=== PATIENT | male | born 1965 | race Caucasian/White ===

== ENCOUNTER 2017-09-24 18:08 | Emergency (ER) | payer BC, OTHER ==
--- NOTE | 2017-09-24 20:09 | RAD REPORT ---
EXAM DESCRIPTION: RAD - Hand Right 3 View - 09/24/2017 7:53 pm CLINICAL HISTORY: Fish hook injury COMPARISON: None. FINDINGS: No fracture is identified. There is no dislocation or periosteal reaction noted. Treble h ook is present in the soft tissues distal third digit. No bone involvement.
[2017-09-24] MEDS ORDERED: LIDOCAINE 2% MPF 5 ML VIAL ONE (20:51)
--- NOTE | 2017-09-24 21:04 | EDPHYS ---
Physician Documentation [facility] Name: Santiago Singh Age: 51 yrs Sex: Male : 1965 Arrival Date: 09/24/2017 Time: 18:13 Bed 30 Private MD: Dannie Lacy E ED Physician Faraz Modi HPI: 09/24 20:53 This 51 yrs old Male presents to ER via Ambulatory with complaints of FISH geeta HOOK IN FINGER. 20:53 The patient or guardian reports a puncture wound, hook. The complaints affect the right geeta hand diffusely. Context: The problem was sustained outdoors. Onset: The symptoms/episode began/occurred just prior to arrival. Modifying factors: The symptoms are alleviated by. Associated signs and symptoms: The patient has no apparent associated signs or symptoms. Severity of symptoms: At their worst the symptoms were mild, in the emergency department the symptoms are unchanged. The patient has not experienced similar symptoms in the past. Historical: - Allergies: 18:25 No Known Allergies; aj - PMHx: 18:25 Back pain; aj - PSHx: 18:25 Nerve stimulator; aj - Immunization history:: Adult Immunizations up to date. - Social history:: Smoking status: Patient/guardian denies using tobacco. - Family history:: not pertinent. ROS: 20:53 Constitutional: Negative for fever, chills, and weight loss, Eyes: Negative for injury, geeta pain, redness, and discharge, ENT: Negative for injury, pain, and discharge, Neck: Negative for injury, pain, and swelling, Cardiovascular: Negative for chest pain, palpitations, and edema, Respiratory: Negative for shortness of breath, cough, wheezing, and pleuritic chest pain, Abdomen/GI: Negative for abdominal pain, nausea, vomiting, diarrhea, and constipation, Back: Negative for injury and pain, : Negative for injury, bleeding, discharge, and swelling, Skin: Negative for injury, rash, and discoloration, Neuro: Negative for headache, weakness, numbness, tingling, and seizure, Psych: Negative for depression, anxiety, suicide ideation, homicidal ideation, and hallucinations, Allergy/Immunology: Negative for hives, rash, and allergies, Endocrine: Negative for neck swelling, polydipsia, polyuria, polyphagia, and marked weight changes, Hematologic/Lymphatic: Negative for swollen nodes, abnormal bleeding, and unusual bruising. 20:53 : Positive for 20:53 MS/extremity: Positive for pain, puncture. Exam: 20:53 Constitutional: This is a well developed, well nourished patient who is awake, alert, geeta and in no acute distress. Head/Face: Normocephalic, atraumatic. Eyes: Pupils equal round and reactive to light, extra-ocular motions intact. Lids and lashes normal. Conjunctiva and sclera are non-icteric and not injected. Cornea within normal limits. Periorbital areas with no swelling, redness, or edema. ENT: Nares patent. No nasal discharge, no septal abnormalities noted. Tympanic membranes are normal and external auditory canals are clear. Oropharynx with no redness, swelling, or masses, exudates, or evidence of obstruction, uvula midline. Mucous membranes moist. Neck: Trachea midline, no thyromegaly or masses palpated, and no cervical lymphadenopathy. Supple, full range of motion without nuchal rigidity, or vertebral point tenderness. No Meningismus. Chest/axilla: Normal chest wall appearance and motion. Nontender with no deformity. No lesions are appreciated. Cardiovascular: Regular rate and rhythm with a normal S1 and S2. No gallops, murmurs, or rubs. Normal PMI, no JVD. No pulse deficits. Respiratory: Lungs have equal breath sounds bilaterally, clear to auscultation and percussion. No rales, rhonchi or wheezes noted. No increased work of breathing, no retractions or nasal flaring. Abdomen/GI: Soft, non-tender, with normal bowel sounds. No distension or tympany. No guarding or rebound. No evidence of tenderness throughout. Back: No spinal tenderness. No costovertebral tenderness. Full range of motion. Male : Normal genitalia with no discharge or lesions. Skin: Warm, dry with normal turgor. Normal color with no rashes, no lesions, and no evidence of cellulitis. Neuro: Awake and alert, GCS 15, oriented to person, place, time, and situation. Cranial nerves II-XII grossly intact. Motor strength 5/5 in all extremities. Sensory grossly intact. Cerebellar exam normal. Normal gait. Psych: Awake, alert, with orientation to person, place and time. Behavior, mood, and affect are within normal limits. 20:53 Musculoskeletal/extremity: Extremities: noted in the palmar aspect of distal phalanx of right middle finger: pain. Vital Signs: 18:25 BP 142 / 112; Pulse 110; Resp 20; Temp 98.5; Pulse Ox 98% on R/A; Weight 90.72 kg; Height 6 ft. 0 in. (182.88 cm); 18:25 Body Mass Index 27.12 (90.72 kg, 182.88 cm) MDM: 20:21 Patient medically screened. [facility] 21:02 Data reviewed: vital signs, nurses notes, radiologic studies, plain films. [facility] 09/24 18:27 Order name: XRAY Hand RIGHT 3 View 09/24 20:52 Order name: Suture Tray at Bedside; Complete Time: 21:37 [facility] 09/24 20:52 Order name: Wound dressing [facility] Administered Medications: 21:00 Drug: Lidocaine (1 %) 5 mg Route: Infiltration; mb3 21:38 Not Given (Patient Refused): Doxycycline 200 mg PO once mb3 Disposition: 09/24/17 21:04 Discharged to Home. Impression: Puncture wound with foreign body of right middle finger without damage to nail. - Condition is Stable. - Discharge Instructions: Fish Hook Removal. - Prescriptions for Tylenol- Codeine #3 300-30 mg Oral Tablet - take 2 tablets by ORAL route every 6 hours As needed; 24 tablet. Doxycycline Hyclate 100 mg Oral Tablet - take 1 tablet by ORAL route every 12 hours; 20 tablet. - Medication Reconciliation Form, Thank You Letter, Antibiotic Education, Prescription Opioid Use form. - Follow up: Dannie Lacy MD; When: 2 - 3 days; Reason: Recheck today's complaints, Continuance of care, Re-evaluation by your physician. - Problem is new. - Symptoms have improved. Signatures: Dispatcher [employer] EDZainab Mortensen RN RN aj Anderson, Corey, MD MD cha Barnett, Mark, RN RN mb3 Corrections: (The following items were deleted from the chart) 21:40 21:04 09/24/2017 21:04 Discharged to Home. Impression: Puncture wound with foreign body mb3 of right middle finger without damage to nail. Condition is Stable. Forms are Medication Reconciliation Form, Thank You Letter, Antibiotic Education, Prescription Opioid Use. Follow up: Dannie Lacy; When: 2 - 3 days; Reason: Recheck today's complaints, Continuance of care, Re-evaluation by your physician. Problem is new. Symptoms have improved. geeta
--- NOTE | 2017-09-24 21:04 | ER ---
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 aj Transition of care: patient was not received from another setting of care. Onset of symptoms was September 24, 2017. Care prior to arrival: None. 18:24 Method Of Arrival: Ambulatory aj 18:24 Acuity: HANDY 4 aj 21:39 Initial Sepsis Screen: Does the patient meet any 2 criteria? No. Patient's initial mb3 sepsis screen is negative. Does the patient have a suspected source of infection? No. Patient's initial sepsis screen is negative. Triage Assessment: 18:25 General: Appears in no apparent distress. comfortable, Behavior is calm, cooperative, aj appropriate for age. Pain: Complains of pain in palmar aspect of distal phalanx of right middle finger. Neuro: Level of Consciousness is awake, alert, obeys commands, Oriented to person, place, time, situation, Appropriate for age. Respiratory: Airway is patent Trachea midline Respiratory effort is even, unlabored, Respiratory pattern is regular, symmetrical. Derm: Skin is intact, is healthy with good turgor, Skin is pink, warm \T\ dry. normal. Injury Description: Foreign body is located palmar aspect of distal phalanx of right middle finger. Historical: - Allergies: 18:25 No Known Allergies; aj - PMHx: 18:25 Back pain; aj - PSHx: 18:25 Nerve stimulator; aj - Immunization history:: Adult Immunizations up to date. - Social history:: Smoking status: Patient/guardian denies using tobacco. - Family history:: not pertinent. Screenin:39 Abuse screen: Denies threats or abuse. Nutritional screening: No deficits noted. mb3 Tuberculosis screening: No symptoms or risk factors identified. Fall Risk None identified. Vital Signs: 18:25 BP 142 / 112; Pulse 110; Resp 20; Temp 98.5; Pulse Ox 98% on R/A; Weight 90.72 kg; aj Height 6 ft. 0 in. (182.88 cm); 18:25 Body Mass Index 27.12 (90.72 kg, 182.88 cm) ED Course: 18:13 Patient arrived in ED. rg4 18:14 Dnanie Lacy MD is Private Physician. rg4 18:25 Triage completed. 18:25 Arm band placed on right wrist. Patient placed in waiting room, Patient notified of wait time. 19:48 X-ray completed. Portable x-ray completed in exam room. Patient tolerated procedure kc2 well. 19:49 XRAY Hand RIGHT 3 View In Process Unspecified. EDMS 20:21 Faraz Modi MD is Attending Physician. [facility] 21:03 Dannie Lacy MD is Referral Physician. [facility] 21:37 lAex Yip, RN is Primary Nurse. mb3 21:39 Assist provider with laceration repair Set up tray. Patient did not have IV access mb3 during this emergency room visit. 21:40 Patient has correct armband on for positive identification. mb3 Administered Medications: 21:00 Drug: Lidocaine (1 %) 5 mg Route: Infiltration; mb3 21:38 Not Given (Patient Refused): Doxycycline 200 mg PO once mb3 Outcome: 21:04 Discharge ordered by . [facility] 21:40 Discharged to home ambulatory. mb3 21:40 Condition: stable 21:40 Discharge instructions given to patient, Instructed on discharge instructions, follow up and referral plans. medication usage, Demonstrated understanding of instructions, follow-up care, medications, Prescriptions given X 2. 21:40 Patient left the ED. mb3 Signatures: Dispatcher [employer] EDRI Zainab Bloom, RN RN Faraz Rodriguez MD MD cha Carr, Kelsie kc2 Gloria Her rg4 Alex Yip, RN RN mb3
== END 2017-09-24 21:40 | disposition home or self-care (01) ==
LOC: ER 18:08
DX: S61.242A Puncture wound with foreign body of right middle finger without damage to nail, initial encounter (principal); X58.XXXA Exposure to other specified factors, initial encounter; Y93.9 Activity, unspecified; Y92.9 Unspecified place or not applicable
CPT/HCPCS: 99284

== ENCOUNTER 2019-08-07 17:14 | Emergency (ER) | payer OTHER ==
--- OUTSIDE RECORDS SUMMARY | 2019-08-07 17:16 | XMS REPORT ---
:1965 [facility] [address] [place] [address] Care Team Providers Name Role Phone Unavailable Unavailable Unavailable Problems This patient has no known problems. Allergies, Adverse Reactions, Alerts This patient has no known allergies or adverse reactions. Medications This patient has no known medications.
[2019-08-07] MEDS ORDERED: ONDANSETRON 4 MG/2 ML VIAL ONE (17:28)
[2019-08-07] MEDS ORDERED: MORPHINE 4 MG/ML SYR ONE (17:28)
[2019-08-07] MEDS ORDERED: HYDROMORPHONE HCL 1 MG/ML INJ ONE ×5 (17:34→20:13)
[2019-08-07] MEDS ORDERED: NA CHLORIDE 0.9% 1,000 ML ONE (17:41)
[2019-08-07] MEDS ORDERED: DIAZEPAM 10 MG/2 ML INJ SYRINGE ONE (18:10)
[2019-08-07 18:12] LABS: Absolute Lymphocytes (CBC) 1.7 K/uL (0.7-4.9); Basophils % 0.5 % (0-1.3); Hematocrit 38.8 % (39.6-49.0); Lymphocytes % 16.1 % (15.3-44.8); MPV 8.2 fL (7.6-11.3); RBC Red Blood Cell Count 4.49 M/uL (4.33-5.43)
[2019-08-07 18:26] LABS: Potassium 3.6 mmol/L (3.5-5.1)
--- NOTE | 2019-08-07 18:40 | ER ---
Nurse's Notes [facility] Name: Santiago Singh Age: 53 yrs Sex: Male : 1965 Arrival Date: 08/07/2019 Time: 17:15 Bed 8 Private MD: Diagnosis: Displaced comminuted fracture of shaft of right femur-distal, above prosthesis Presentation: 08/06 17:16 Chief complaint: EMS states: FALL FROM STANDING ONTO R KNEE. Coronavirus screen: bp Patient denies fever greater than 100.4F, cough, shortness of breath, or difficulty breathing. Proceed with normal triage process. Ebola Screen: No symptoms or risks identified at this time. Initial Sepsis Screen: Does the patient meet any 2 criteria? HR > 90 bpm. No. Patient's initial sepsis screen is negative. Does the patient have a suspected source of infection? No. Patient's initial sepsis screen is negative. Risk Assessment: Do you want to hurt yourself or someone else? Patient reports no desire to harm self or others. Care prior to arrival: Medication(s) given: FENTANYL 100 MCG, KETAMINE 60 MG IV initiated. 18 GA, in the right hand. 17:16 Method Of Arrival: EMS: [facility] bp 17:16 Acuity: HANDY 3 bp 19:08 Onset of symptoms was August 07, 2019. jd3 Triage Assessment: 17:18 General: Appears in no apparent distress. comfortable, Behavior is cooperative, bp appropriate for age, agitated, anxious. Pain: Complains of pain in right knee. EENT: No deficits noted. Neuro: No deficits noted. Cardiovascular: No deficits noted. Respiratory: No deficits noted. GI: No signs and/or symptoms were reported involving the gastrointestinal system. : No signs and/or symptoms were reported regarding the genitourinary system. Derm: No deficits noted. Musculoskeletal: Swelling present in right knee. Historical: - Allergies: 17:18 No Known Allergies; bp - Home Meds: 17:18 [place] 10-325 mg Oral tab 1 tab every 6 hours [Active]; bp - PMHx: 17:18 Chronic pain; bp - Immunization history:: Adult Immunizations up to date. - Social history:: Smoking status: unknown. Screenin:19 Abuse screen: Denies threats or abuse. Denies injuries from another. Nutritional bp screening: No deficits noted. Tuberculosis screening: No symptoms or risk factors identified. Fall Risk None identified. Assessment: 17:19 General: SEE TRIAGE NOTE. bp 17:30 Reassessment: PT AGITATED AND LOUD, MD INFORMED. MEDICATION ORDERED AND GIVEN. bp 17:48 Reassessment: XRAY AT B/S, PT REFUSING ALL XRAY EXCEPT KNEE. bp 18:35 Reassessment: PT REFUSING ADDITIONAL XRAYS. CT KNEE PENDING. bp 19:05 Reassessment: pt to CT with certified technician. jd3 19:30 Reassessment: report given to Rianna Escamilla RN at [facility]. jd3 19:40 General: Appears in no apparent distress. uncomfortable, Behavior is calm, cooperative, jd3 appropriate for age. Pain: Complains of pain in right knee Quality of pain is described as sharp, shooting, tender. Neuro: Level of Consciousness is awake, alert, obeys commands, Oriented to person, place, time, situation. Cardiovascular: Denies chest pain, Capillary refill < 3 seconds Patient's skin is warm and dry. Respiratory: Airway is patent Respiratory effort is even, unlabored, Respiratory pattern is regular, symmetrical, Denies cough, shortness of breath. GI: No signs and/or symptoms were reported involving the gastrointestinal system. Patient currently denies diarrhea, nausea, vomiting. : No signs and/or symptoms were reported regarding the genitourinary system. EENT: No signs and/or symptoms were reported regarding the EENT system. Derm: Skin is intact, Skin is dry, Skin is normal, Skin temperature is warm. Musculoskeletal: Circulation, motion, and sensation intact. Range of motion: limited in right knee. Injury Description: Abrasion sustained to right knee. 20:17 Reassessment: Patient appears in no apparent distress at this time. No changes from jd3 previously documented assessment. Patient and/or family updated on plan of care and expected duration. Pain level reassessed. Patient is alert, oriented x 3, equal unlabored respirations, skin warm/dry/pink. report given to EMS. Vital Signs: 17:16 BP 144 / 67; Pulse 102; Resp 17; Temp 98; Pulse Ox 98% ; Weight 81.65 kg; bp 17:49 BP 154 / 94; Pulse 74; Resp 17; Pulse Ox 98% ; bp 18:34 BP 174 / 95; Pulse 80; Resp 17; Pulse Ox 97% ; bp 19:48 BP 188 / 99; Pulse 81; Resp 17 S; Pulse Ox 100% on R/A; jd3 ED Course: 17:15 Patient arrived in ED. bp 17:17 Triage completed. bp 17:17 Faraz Modi MD is Attending Physician. geeta 17:18 Faraz Gillis PA is PHCP. cp 17:18 Arm band placed on. bp 17:19 Patient has correct armband on for positive identification. Bed in low position. Call bp light in reach. Side rails up X2. 17:19 Maintain EMS IV. Dressing intact. Good blood return noted. Site clean \T\ dry. Gauge \T\ bp site: 18 G R HAND. 17:42 Arjun Santoro, RN is Primary Nurse. bp 18:24 Knee Right 3 View In Process Unspecified. EDMS 18:55 Inserted saline lock: 20 gauge in right wrist, using aseptic technique. placed by Arjun forrest RN. 19:19 Knee Right Wo Cont In Process Unspecified. EDMS 19:29 No provider procedures requiring assistance completed. Patient transferred, IV remains jd3 in place. 19:40 Knee immobilizer applied on right knee. jd3 Administered Medications: 17:26 Drug: morphine 4 mg Route: IVP; Site: right hand; bp 17:43 Follow up: Response: Pain is unchanged, physician notified bp 17:27 Drug: Zofran (Ondansetron) 4 mg Route: IVP; Site: right hand; bp 17:45 Follow up: Response: No adverse reaction bp 17:27 Drug: NS 0.9% 1000 ml Route: IV; Rate: 1 bolus; Site: right hand; bp 19:00 Follow up: Response: No adverse reaction; IV Status: Completed infusion; IV Intake: jd3 1000ml 17:29 CANCELLED (Physician Discretion): morphine 4 mg IVP once; RASS on ADMIN: Combtv4, Very cp Agttd3, Agttd2, Rstlss1, AlertClm0, Drwsy-1, Lt Sdtn-2, Mod Sdtn-3, Dp Sdtn-4, UnArsble-5 17:32 Drug: Dilaudid 1 mg Route: IVP; Site: right hand; bp 17:44 Follow up: Response: Pain is decreased bp 17:44 Follow up: Response: Pain is unchanged, physician notified bp 17:33 CANCELLED (Duplicate Order): Dilaudid 1 mg IVP once; RASS on ADMIN: Combtv4, Very bp Agttd3, Agttd2, Rstlss1, AlertClm0, Drwsy-1, Lt Sdtn-2, Mod Sdtn-3, Dp Sdtn-4, UnArsble-5 17:43 Drug: Dilaudid 1 mg Route: IVP; Site: right hand; bp 17:44 Follow up: Response: Pain is decreased bp 18:08 Drug: Valium 5 mg Route: IVP; Site: right hand; bp 18:34 Follow up: Response: No adverse reaction; Pain is decreased bp 18:08 Drug: Dilaudid 1 mg Route: IVP; Site: right hand; bp 18:34 Follow up: Response: Pain is decreased bp 19:01 Drug: Dilaudid 1 mg Route: IVP; Site: right hand; bp 19:39 Follow up: Response: No adverse reaction; RASS: Restless (+1) jd3 20:15 Drug: Dilaudid 1 mg Route: IVP; Site: right wrist; jd3 20:19 Follow up: Response: No adverse reaction; RASS: Alert and Calm (0); RASS: Alert and jd3 Calm (0), medicated prior to transfer. Intake: 19:00 IV: 1000ml; Total: 1000ml. jd3 Outcome: 18:39 ER care complete, transfer ordered by . cp 20:17 Transferred by ground EMS to other acute care facility: [facility] Transfer jd3 form completed. X-rays sent w/ patient. 20:17 Condition: stable 20:17 Instructed on the need for transfer, Demonstrated understanding of instructions. 20:20 Patient left the ED. jd3 Signatures: Dispatcher [employer] EDMS Faraz Modi MD MD cha Page, Corey, PA PA cp Davies, Jonathon, RN RN jd3 Peltier, Brian, RN RN bp Corrections: (The following items were deleted from the chart) 17:50 17:48 Reassessment: XRAY AT B/S. bp bp 18:36 18:35 Reassessment: PT REFUSING ADDITIONAL XRAYS. SPLINT AND TRANSFER PENDING bp bp 19:48 19:40 General: Appears in no apparent distress. uncomfortable, Behavior is calm, jd3 cooperative, appropriate for age, jd3
--- NOTE | 2019-08-07 18:41 | EDPHYS ---
Physician Documentation [facility] Name: Santiago Singh Age: 53 yrs Sex: Male : 1965 Arrival Date: 08/07/2019 Time: 17:15 Bed 8 Private MD: ED Physician Faraz Modi HPI: 08/06 17:45 This 53 yrs old Male presents to ER via EMS with complaints of Knee Pain. cp 17:45 The patient presents with decreased range of motion, an injury, pain, that is acute, cp swelling, tenderness. The complaints affect the right knee. Context: resulted from the patient falling, while walking, the patient is not able to bear weight, the patient is not able to ambulate, Patient reports having knee replacement surgery in March 2019. Onset: The symptoms/episode began/occurred just prior to arrival. Associated signs and symptoms: Pertinent negatives numbness. Treatment prior to arrival includes: splinting the affected extremity, given 100 fentanyl and 60 mg ketamine by EMS. Severity of symptoms: in the emergency department the symptoms are unchanged, despite EMS interventions. Historical: - Allergies: 17:18 No Known Allergies; bp - Home Meds: 17:18 Peck 10-325 mg Oral tab 1 tab every 6 hours [Active]; bp - PMHx: 17:18 Chronic pain; bp - Immunization history:: Adult Immunizations up to date. - Social history:: Smoking status: unknown. ROS: 17:48 Eyes: Negative for injury, pain, redness, and discharge. cp 17:48 Constitutional: Negative for body aches, chills, fever, poor PO intake. 17:48 Neck: Negative for pain with movement, pain at rest, stiffness, tenderness, bony tenderness. 17:48 Cardiovascular: Negative for chest pain, edema, palpitations. 17:48 Respiratory: Negative for cough, shortness of breath, wheezing. 17:48 Abdomen/GI: Negative for abdominal pain, vomiting, diarrhea, constipation, black/tarry stool, rectal bleeding. 17:48 Back: Negative for pain at rest, pain with movement. 17:48 MS/extremity: Positive for injury or acute deformity, decreased range of motion, pain, of the right leg, Negative for paresthesias. 17:48 Skin: Positive for abrasion(s), of the right leg. 17:48 Neuro: Negative for altered mental status, dizziness, headache, loss of consciousness, syncope, weakness. 17:48 All other systems are negative. Exam: 17:50 Head/Face: Normocephalic, atraumatic. cp 17:50 Constitutional: The patient appears alert, awake, non-toxic, well developed, well nourished, in obvious distress, mildly distressed, in obvious pain, uncomfortable. 17:50 Eyes: Periorbital structures: appear normal, Pupils: equal, round, and reactive to light and accomodation, Extraocular movements: intact throughout, Conjunctiva: normal, no exudate, no injection, Lids and lashes: appear normal, bilaterally. 17:50 ENT: External ear(s): are unremarkable, Nose: is normal, Mouth: Lips: moist, Oral mucosa: pink and intact, moist, Posterior pharynx: is normal, airway is patent, no erythema, no exudate. 17:50 Neck: C-spine: vertebral tenderness, is not appreciated, crepitus, is not appreciated, ROM/movement: pain, is not appreciated, limited range of motion, is not appreciated. 17:50 Chest/axilla: Inspection: normal, Palpation: is normal, no crepitus, no tenderness. 17:50 Cardiovascular: Rate: normal, Rhythm: regular, Edema: is not appreciated, JVD: is not appreciated. 17:50 Respiratory: the patient does not display signs of respiratory distress, Respirations: normal, no use of accessory muscles, no retractions, labored breathing, is not present, Breath sounds: are clear throughout, no decreased breath sounds, no stridor, no wheezing. 17:50 Abdomen/GI: Inspection: abdomen appears normal, Bowel sounds: active, all quadrants, Palpation: abdomen is soft and non-tender, in all quadrants, voluntary guarding, is not appreciated, involuntary guarding, is not appreciated. 17:50 Back: pain, is absent, ROM is normal. 17:50 Musculoskeletal/extremity: Extremities: grossly normal except: noted in the right leg: decreased ROM, pain, tenderness, Perfusion: the extremity is normally perfused throughout, Severe pain noted. Joints: All joints are normal except the right knee displays limited range of motion, pain at rest, painful range of motion, swelling, tenderness. 17:50 Skin: injury, abrasion(s), small abrasion noted, of the right leg. 17:50 Neuro: Orientation: to person, place \T\ time. Mentation: is normal, Motor: moves all fours, strength is normal, Sensation: is normal. Vital Signs: 17:16 BP 144 / 67; Pulse 102; Resp 17; Temp 98; Pulse Ox 98% ; Weight 81.65 kg; bp 17:49 BP 154 / 94; Pulse 74; Resp 17; Pulse Ox 98% ; bp 18:34 BP 174 / 95; Pulse 80; Resp 17; Pulse Ox 97% ; bp 19:48 BP 188 / 99; Pulse 81; Resp 17 S; Pulse Ox 100% on R/A; jd3 MDM: 17:17 Patient medically screened. geeta 17:30 Differential diagnosis: dislocation, open fracture, closed fracture, contusion, cp abrasion. 18:35 Data reviewed: vital signs, nurses notes, lab test result(s), radiologic studies, plain cp films. 18:35 Test interpretation: by ED physician or midlevel provider: xrays of right knee show cp distal femur fracture above prosthesis. Response to treatment: the patient's symptoms have mildly improved after treatment, and as a result, I will transfer patient. 08/06 17:20 Order name: Basic Metabolic Panel; Complete Time: 18:35 08/06 18:35 Interpretation: Normal except: CL 110; GLUC 127; GFR 80. 08/06 17:20 Order name: CBC with Diff; Complete Time: 18:35 08/06 18:35 Interpretation: Normal except: HGB 13.2; HCT 38.8; AKASH% 75.4. 08/06 17:20 Order name: Creatinine for Radiology; Complete Time: 18:35 08/06 17:20 Order name: Type And Screen; Complete Time: 19:46 08/06 19:13 Order name: Antibody Screen; Complete Time: 19:46 EDMS 08/06 18:10 Order name: Knee Right 3 View; Complete Time: 19:46 EDMS 08/06 19:46 Interpretation: Report Reviewed. 08/06 18:42 Order name: Knee Right Wo Cont; Complete Time: 19:46 EDMS 08/06 19:47 Interpretation: Report Reviewed. 08/06 17:20 Order name: Labs collected and sent; Complete Time: 19:49 08/06 18:35 Order name: Knee Immobilizer; Complete Time: 19:39 cp Administered Medications: 17:26 Drug: morphine 4 mg Route: IVP; Site: right hand; bp 17:43 Follow up: Response: Pain is unchanged, physician notified bp 17:27 Drug: Zofran (Ondansetron) 4 mg Route: IVP; Site: right hand; bp 17:45 Follow up: Response: No adverse reaction bp 17:27 Drug: NS 0.9% 1000 ml Route: IV; Rate: 1 bolus; Site: right hand; bp 19:00 Follow up: Response: No adverse reaction; IV Status: Completed infusion; IV Intake: jd3 1000ml 17:29 CANCELLED (Physician Discretion): morphine 4 mg IVP once; RASS on ADMIN: Combtv4, Very cp Agttd3, Agttd2, Rstlss1, AlertClm0, Drwsy-1, Lt Sdtn-2, Mod Sdtn-3, Dp Sdtn-4, UnArsble-5 17:32 Drug: Dilaudid 1 mg Route: IVP; Site: right hand; bp 17:44 Follow up: Response: Pain is decreased bp 17:44 Follow up: Response: Pain is unchanged, physician notified bp 17:33 CANCELLED (Duplicate Order): Dilaudid 1 mg IVP once; RASS on ADMIN: Combtv4, Very bp Agttd3, Agttd2, Rstlss1, AlertClm0, Drwsy-1, Lt Sdtn-2, Mod Sdtn-3, Dp Sdtn-4, UnArsble-5 17:43 Drug: Dilaudid 1 mg Route: IVP; Site: right hand; bp 17:44 Follow up: Response: Pain is decreased bp 18:08 Drug: Valium 5 mg Route: IVP; Site: right hand; bp 18:34 Follow up: Response: No adverse reaction; Pain is decreased bp 18:08 Drug: Dilaudid 1 mg Route: IVP; Site: right hand; bp 18:34 Follow up: Response: Pain is decreased bp 19:01 Drug: Dilaudid 1 mg Route: IVP; Site: right hand; bp 19:39 Follow up: Response: No adverse reaction; RASS: Restless (+1) jd3 20:15 Drug: Dilaudid 1 mg Route: IVP; Site: right wrist; jd3 20:19 Follow up: Response: No adverse reaction; RASS: Alert and Calm (0); RASS: Alert and jd3 Calm (0), medicated prior to transfer. Disposition: 08/07 07:34 Co-signature as Attending Physician, Faraz Modi MD I agree with the assessment and geeta plan of care. Disposition: 08/07/19 18:39 Transfer ordered to [facility]. Diagnosis is Displaced comminuted fracture of shaft of right femur - distal, above prosthesis. - Reason for transfer: Higher level of care. - Accepting physician is DR Dash Palacios. - Condition is Stable. - Problem is new. - Symptoms have improved. Signatures: Dispatcher [employer] EDFarza Go MD MD cha Page, Corey, PA PA cp Davies, Jonathon, RN RN jArjun Yanez RN RN bp Corrections: (The following items were deleted from the chart) 08/06 17:29 17:28 morphine 4 mg IVP once; RASS on ADMIN: Combtv4, Very Agttd3, Agttd2, Rstlss1, cp AlertClm0, Drwsy-1, Lt Sdtn-2, Mod Sdtn-3, Dp Sdtn-4, UnArsble-5 ordered. cp 17:33 17:29 Dilaudid 1 mg IVP once; RASS on ADMIN: Combtv4, Very Agttd3, Agttd2, Rstlss1, bp AlertClm0, Drwsy-1, Lt Sdtn-2, Mod Sdtn-3, Dp Sdtn-4, UnArsble-5 ordered. cp 18:10 17:21 Tib Fib Right+RAD.RAD.BRZ ordered. EDMS EDMS 18:23 17:21 Pelvis+RAD.RAD.BRZ ordered. EDMS EDMS 18:23 17:21 Femur Right+RAD.RAD.BRZ ordered. EDMS EDMS 18:35 18:12 Splint - Posterior Leg ordered. cp cp 18:42 18:38 CT RIGHT KNEE WO CONTRAST ordered. EDMS EDMS 20:20 18:39 08/07/2019 18:39 Transfer ordered to [facility]. Diagnosis is Displaced jd3 comminuted fracture of shaft of right femur - distal, above prosthesis. Reason for transfer: Higher level of care. Accepting physician is DR Dash Palacios. Condition is Stable. Problem is new. Symptoms have improved. cp 08/07 13:43 13:41 Data reviewed: vital signs, nurses notes, cp cp
--- NOTE | 2019-08-07 19:40 | RAD REPORT ---
EXAM DESCRIPTION: Dilshad Espinoza Cont08/07/2019 7:17 pm CLINICAL HISTORY: Right knee pain status post injury COMPARISON: August 07, 2019 x-ray TECHNIQUE: Computed axial tomography of the right knee was obtained with coronal and sagittal recons truction. All CT scans are performed using dose optimization technique as appropriate and may include automated exposure control or mA/KV adjustment according to patient size. FINDINGS: Moderately to markedly displaced comminuted fracture involves the distal femoral diaphysis extending into the metaphysis. Right knee arthroplasty has been performed. No loosening of the prosthesis. Moderate to large hemarthrosis is present No dislocation IMPRESSION: Moderately to markedly displaced comminuted fracture distal right femur
--- NOTE | 2019-08-07 19:41 | RAD REPORT ---
EXAM DESCRIPTION: RAD - Knee Right 3 View - 08/07/2019 6:23 pm CLINICAL HISTORY: Right knee pain status post injury FINDINGS: Moderately to markedly displaced comminuted fracture involves the distal right femoral truong physis extending into the right femoral metaphysis Right knee arthroplasty has been performed. There is no evidence of loosening of the prosthesis. No dislocation
[2019-08-07 21:33] VITALS: TEMP 98
[2019-08-07 21:38] VITALS: BP 188/99; O2SAT 100
== END 2019-08-07 20:20 | disposition short-term general hospital (02) ==
LOC: ER 17:14
DX: S72.351A Displaced comminuted fracture of shaft of right femur, initial encounter for closed fracture (principal); M97.11XA Periprosthetic fracture around internal prosthetic right knee joint, initial encounter; G89.29 Other chronic pain; W19.XXXA Unspecified fall, initial encounter; Y93.01 Activity, walking, marching and hiking; Y92.9 Unspecified place or not applicable
CPT/HCPCS: 96361; 85025; 80048; 36415; 86900; 86850 ×2; 86901; 73700; 73562; 96375; 96374; 99285; J3360; J1170 ×5; J7030; J2405